=== PATIENT | female | born 1980 | race Caucasian/White ===

== ENCOUNTER 2019-06-28 16:52 | Emergency (ER) | payer BC ==
[~2019-06-28] VITALS: Ht 157.5 cm; Wt 90.7 kg
[2019-06-28] MEDS ORDERED: RACEPINEPHRINE HCL 2.25% NEB 0.5 ML VIAL.NEB IH ONE ×2 (17:07→17:30)
--- NOTE | 2019-06-28 17:12 | NUR ---
[id number],had an allergic reaction on the lotion w avocado content. epi pen administered and 0.5 IM by ems, albuterol 5mg,93% on RA,hoarseness. +SOB, TALKING CAUSES EXACERBATION. PLACED ON 2L O2 VIA NASAL CANNULA. AOX4, AMB, TACHYCARDIC. SKIN WARM, DRY, INTACT. DENIES PAIN, WEAKNESS, DIZZINESS. ON MONITOR, AND READY FOR EVAL.
[2019-06-28] MEDS ORDERED: FAMOTIDINE/PF INJ 40 MG in IV D5W 250 ML IV ONE (17:30)
[2019-06-28] MEDS ORDERED: FAMOTIDINE/PF INJ 20 MG/2 ML VIAL IV ONE (17:30)
[2019-06-28] MEDS ORDERED: methylPREDNISolone SOD SUCC 125 MG/2ML VIAL IV ONE (17:30)
[2019-06-28] MEDS ORDERED: diphenhydrAMINE HCL 50 MG/ML VIAL ONE (17:30)
[2019-06-28] MEDS ORDERED: methylPREDNISolone SOD SUCC 125 MG/2ML VIAL ONE (17:30)
[2019-06-28] MEDS ORDERED: diphenhydrAMINE HCL 50 MG/ML VIAL IV ONE (17:30)
--- NOTE | 2019-06-28 17:45 | NUR ---
RT AT BEDSIDE FOR BREATHING TX
--- NOTE | 2019-06-28 17:55 | NUR ---
UNABLE TO GET IV ACCESS. PER MD, IM ROUTE OK
[2019-06-28] MEDS ORDERED: FAMOTIDINE (20 MG) 20 MG TABLET ONE (18:01)
[2019-06-28] MEDS ORDERED: ONDANSETRON 4 MG TAB.RAPDIS ONE (19:11)
--- NOTE | 2019-06-28 19:16 | NUR ---
Patient discharged to home in stable condition. Written and verbal after care instructions given. Patient verbalizes understanding of instruction.
[2019-06-28 19:21] VITALS: BP 131/68
== END 2019-06-28 19:21 | disposition home or self-care (01) ==
LOC: ER 16:58
DX: T49.95XA Adverse effect of unspecified topical agent, initial encounter (principal); R06.2 Wheezing; E11.9 Type 2 diabetes mellitus without complications; Z91.018 Allergy to other foods; Y92.89 Other specified places as the place of occurrence of the external cause
CPT/HCPCS: 94640; 96372 ×2; 99284; J1200; J2930; J3490; J7060; Q0162